=== PATIENT | female | born 1940 | race Caucasian/White ===

== ENCOUNTER 2024-07-22 22:50 | Emergency (ER) | payer OTHER, SELFPAY ==
[2024-07-22 22:55] VITALS: BP 173/102
[2024-07-22 22:57] VITALS: BMI 21.7
[2024-07-22 22:58] VITALS: BP 171/102
[2024-07-22 23:00] VITALS: BP 184/75
--- NOTE | 2024-07-22 23:23 | ED.GENMED ---
History of Present Illness
General
Chief Complaint: Fall
Source: patient
Exam Limitations: none
Time Seen by Provider: 07/22/24 23:02
History of Present Illness
History of Present Illness:
Patient reached for the wall lost her balance and fell. No syncope. No LOC. Hit her head. No loss of consciousness. Last tetanus is unknown. No other injury or complaint. No thinners.
Past History
Past History
ED Past Medical History: HTN, Hypercholesterolemia and NIDDM
ED Past Surgical History: Gynecological (Hysterectomy, D&C) and Other (Parathyroid ectomy wisdom teeth extraction)
Social History
Tobacco: Non-smoker
Alcohol: Occasional
Personal:
Living: with family
Employment: Retired
Family History
Family History: Negative Diabetes, Hypertension or CAD
Review of Systems
Review of Systems
All Other Systems: Not applicable
Respiratory: Reports no symptoms
Cardiac: Reports no symptoms
ABD/GI: Reports no symptoms
Neurological: Denies dizzy, headache, weakness or numbness
Phy Exam
Physical Exam
Physical Exam:
TRAUMA EXAM:
VITAL SIGNS: Vital signs reviewed, cooperative. Elderly and frail
DISTRESS: No active disease
EYES: Pupils reactive, no orbital trauma
NOSE: No deformity or epistaxis
FACE AND SCALP: 3 cm right posterior scalp laceration/hematoma.
NECK: Supple nontender
BACK: Back nontender, pelvis stable to compression
RESPIRATORY: No distress, breath sounds normal, no tender chest wall
CARDIAC: No murmur, pulses equal and strong
ABDOMEN: Soft nontender bowel sounds normal
SKIN: Skin intact no bleeding, color normal
EXTREMITIES: Nontender
NEUROLOGICAL: Alert, oriented, no motor deficits
PSYCH: Mood affect normal
Course
Orders/Labs/Results
Orders:
Orders
07/22/24 23:12
Cardiac Monitoring- Treatment ONCE
Tetanus/Diphth/Acelpertussis [Adacel] 0.5 ml IM .ONCE ONE
07/23/24 00:01
CT Cervical Spine W/o Iv Contr Urgent
Reason For Exam: trauma
CT Head W/o Iv Contrast Urgent
Reason For Exam: trauma
Vital Signs
Initial and Last Documented VS:
Initial Vital Signs
Pulse Resp BP Pulse Ox
71 21 173/102 97
07/22/24 22:55 07/22/24 22:55 07/22/24 22:55 07/22/24 22:55
Last Documented Vital Signs
Temp Pulse Resp BP Pulse Ox
97.1 F 73 19 184/75 97
07/22/24 22:58 07/22/24 23:00 07/22/24 23:00 07/22/24 23:00 07/22/24 23:00
Procedures
Laceration Closure
Right Posterior Head:
Status of Wound: clean
Size of Wound in cm: 3
Description of Wound Edges: ragged
Preparation: cleaned with saline and cleaned with Betadine
Anesthesia: 1% Lidocaine with epi
Revision/Debridement: routine- no revision
Wound exploration: explored to base- no FB
Type of Closure: single layer closure
Skin Closure Material: 4-0 nylon
Number of sutures: 4
MDM/Problems Addressed
Differential Diagnosis Includes:
Posterior scalp hematoma secondary to fall. No syncope. No indications to support medical cause of this. Appears to have just lost her balance. As far as head injury she is awake alert and oriented. Based on mechanism and age she will have a CT
done of the head and cervical spine. Laceration was sterilely repaired. She has no other injury or complaint.
*Radiology
Radiology exam reviewed: radiology read reviewed (Negative CTs)
*Pulse Oximetry
Patient hypoxic: no
*Computational Geneticist Interpretation
Rate: normal
Interpretation: normal
Heart Rate: 82
Rhythm: sinus
Data Reviewed
Review of Other/Old Records Reveals: Labs and Testing
Update Note
Update Note:
Medically stable. Discharged to follow-up
ED Attending Note
-
Portions of this chart may have been created with voice recognition software.� Occasional wrong word or��sound alike� substitutions may have occurred due to the inherent limitations of voice recognition software.
Discharge Plan
Departure
Discharge Problem:
Fall/head injury, Scalp laceration/hematoma
Instructions: BLOOD PRESSURE, Head Injury in Adults (DC), Laceration Repair With Stitches (DC)
Prescriptions:
No Action
multivitamin [Daily Multiple] 1 EACH tablet
1 ea PO DAILY
Cinnamon
1 PO DAILY
Fish Oil
1 PO DAILY
Garlic
1 PO DAILY
Losartan
1 tab PO DAILY
Red Yeast Rice
1 PO DAILY
Vitamin C:
1 tab PO DAILY
Zoloft:
1 tab PO DAILY
gentamicin [Garamycin] 0.3 % drops
1 drp BOTH EYES Q3 Qty: 1 1RF
amoxicillin-pot clavulanate 1 TABLET tablet
1 tab PO Q12 Qty: 14 0RF
hydrocodone-acetaminophen 1 TABLET tablet
1 tab PO HSPRN PRN (Reason: pain) Qty: 8 0RF
prednisone 20 MG tablet
40 mg PO DAILY Qty: 10 0RF
Referrals:
UNKNOWN - PT NOT,INTERVIEWE [Family Provider] -
Activity Restrictions/Additional Instructions:
Wound check in 2 to 3 days. Suture removal in 7 days
Interventions
Interventions:
*Risk Screen - Suicide Last Done: 07/22/24 22:59
*General Assessment Last Done: 07/22/24 22:59
*Neglect/Abuse Screening Last Done: 07/22/24 22:59
*ED COVID-19 Vaccine History Last Done: 07/22/24 22:59
ED-Musculoskeletal Assessment Last Done: 07/22/24 23:00
ED- Neurological Assessment Last Done: 07/22/24 23:00
ED-Skin Assessment Last Done: 07/22/24 23:01
Discharge Date and Time
Print Language: SYRIAN
[2024-07-23 01:30] VITALS: BP 165/88
== END 2024-07-23 03:40 | disposition home or self-care (01) ==
LOC: EMR 22:50
PROVIDERS: EMERGENCY PHYSICIAN Emergency Medicine
DX: S01.01XA Laceration without foreign body of scalp, initial encounter (principal); W19.XXXA Unspecified fall, initial encounter; I10 Essential (primary) hypertension
CPT/HCPCS: 99284; 12002; 70450; 72125

== ENCOUNTER 2025-03-19 09:30 | Emergency (ER) | payer OTHER, SELFPAY ==
[2025-03-19 09:36] VITALS: BMI 23.1
[2025-03-19 09:39] VITALS: BP 172/87
[2025-03-19 10:00] VITALS: BP 184/94
--- NOTE | 2025-03-19 10:07 | ED.GENMED ---
History of Present Illness
General
Chief Complaint: Fall
Time Seen by Provider: 03/19/25 09:38
History of Present Illness
History of Present Illness:
85-year-old female presenting from home after a fall. Per EMS, history of frequent falls, presents from home where she resides with her daughters. No family at bedside for additional information. Patient is not sure what happened regarding the
events of the fall. Patient arrives after she struck the back of her head, denies loss of consciousness. Denies extremity pain. Denies chest pain or difficulty breathing. Denies any fever. No report of any blood thinners. No lightheadedness or
dizziness. Denies additional acute medical complaints
Past History
Past History
ED Past Medical History: HTN, Hypercholesterolemia and NIDDM
ED Past Surgical History: Gynecological (Hysterectomy, D&C) and Other (Parathyroid ectomy wisdom teeth extraction)
Social History
Tobacco: Non-smoker
Alcohol: Occasional
Personal:
Living: with family
Employment: Retired
Family History
Family History: Negative Diabetes, Hypertension or CAD
Phy Exam
Physical Exam
Physical Exam:
General: Well-appearing, no clinical signs of dehydration, nontoxic and in no acute distress
HEENT: protecting airway
Neck: appears supple, no midline tenderness
Head: Moderate-sized hematoma to the right posterior parietal scalp. Skin avulsion without deep laceration
CV: Normal heart rate, regular rhythm
Resp: No accessory muscle use, no increased work of breathing, lungs clear to auscultation bilaterally
Abd: Soft and non-distended, no tenderness to palpation
Extremities: No deformities, no swelling, no erythema, pulses and sensation intact
Neuro: alert, no focal neurologic deficit
: deferred
Rectal: deferred
Psych: Normal affect
Skin: Intact
Course
Orders/Labs/Results
Orders:
Orders
03/19/25 09:56
CT Cervical Spine W/o Iv Contr Urgent
Comment:
Reason For Exam: fall
EKG- Treatment ONCE
03/19/25 09:57
Electrocardiogram (*1) Urgent
Reason for Study: Vertigo / Dizzy
CT Head W/o Iv Contrast Urgent
Comment:
Reason For Exam: fall, posterior hematoma
03/19/25 10:02
Complete Blood Count/With Diff Urgent
Comprehensive Metabolic Panel Urgent
Abnormal Lab Results
03/19/25
10:02
MCHC 32.1 L g/dL
(33.0-37.0)
Chloride 108 H mmol/L
(98-107)
BUN 25 H mg/dl
(7-17)
Glucose 119 H mg/dl
(70-99)
03/19/25 10:02
03/19/25 10:02
Vital Signs
Initial and Last Documented VS:
Initial Vital Signs
Temp Pulse Resp BP Pulse Ox
97.6 F 67 16 172/87 99
03/19/25 09:39 03/19/25 09:39 03/19/25 09:39 03/19/25 09:39 03/19/25 09:39
Last Documented Vital Signs
Temp Pulse Resp BP Pulse Ox
97.6 F 71 16 171/61 98
03/19/25 09:39 03/19/25 11:15 03/19/25 09:39 03/19/25 11:12 03/19/25 11:15
MDM/Problems Addressed
MDM/Problems Addressed:
85-year-old female presenting after a fall at home. Vital signs on arrival are significant for hypertension.
On exam, patient is resting comfortably, no acute distress or discomfort. Obvious signs of head trauma. Wound was irrigated and cleaned with no deep laceration, skin avulsion. Compressive bandage placed. Patient is alert and oriented. She is
unsure why she fell. For this reason we will obtain laboratory analysis and EKG. No additional signs of trauma on examination. Attempted call contact number listed in chart, no answer. Will continue to try to contact family.
11:40 - Patient's labs are unremarkable. EKG without arrhythmia or ischemia. Feel stable for discharge. Patient is requesting to go home. Did try to call patient's , however patient notes that he is in the hospital. She reports she has 3
daughters that will be at home with her. Will provide transportation home. Return precautions discussed
*Pulse Oximetry
SaO2: 98
Oxygen Mode of Delivery: Room air
Patient hypoxic: no
*EKG
Interpreted by ED Provider?: Yes
EKG Intrepretation Date: 03/19/25
EKG Intrepretation Time: 11:43
Interpretation: normal
Heart Rate: 61
Rate: normal
Rhythm: sinus and PVC's
Arco: normal axis
Interval: normal interval
QRS Pattern: normal QRS
*Critical Care Note
Total Time (30-74mins, 75-104mins- exclusive of procedures): Not Applicable
ED Attending Note
-
Portions of this chart may have been created with voice recognition software.� Occasional wrong word or��sound alike� substitutions may have occurred due to the inherent limitations of voice recognition software.
Discharge Plan
Departure
Prescriptions:
No Action
multivitamin [Daily Multiple] 1 EACH tablet
1 ea PO DAILY
Cinnamon
1 PO DAILY
Fish Oil
1 PO DAILY
Garlic
1 PO DAILY
Losartan
1 tab PO DAILY
Red Yeast Rice
1 PO DAILY
Vitamin C:
1 tab PO DAILY
Zoloft:
1 tab PO DAILY
gentamicin [Garamycin] 0.3 % drops
1 drp BOTH EYES Q3 Qty: 1 1RF
amoxicillin-pot clavulanate 1 TABLET tablet
1 tab PO Q12 Qty: 14 0RF
hydrocodone-acetaminophen 1 TABLET tablet
1 tab PO HSPRN PRN (Reason: pain) Qty: 8 0RF
prednisone 20 MG tablet
40 mg PO DAILY Qty: 10 0RF
Referrals:
UNKNOWN - PT NOT,INTERVIEWE [Family Provider]
Interventions
Interventions:
*Risk Screen - Suicide Last Done: 03/19/25 09:36
*General Assessment Last Done: 03/19/25 09:36
*Neglect/Abuse Screening Last Done: 03/19/25 09:36
*ED- Fall Risk Assessment Last Done: 03/19/25 09:36
*ED COVID-19 Vaccine History Last Done: 03/19/25 09:36
ED-Musculoskeletal Assessment Last Done: 03/19/25 09:49
ED- Neurological Assessment Last Done: 03/19/25 09:49
ED-Skin Assessment Last Done: 03/19/25 09:49
Discharge Date and Time
Print Language: [place]ET[place]
[2025-03-19 10:24] LABS: Hematocrit 39.2 % (37.0-47.0); Hemoglobin 12.6 g/dL (12.0-16.0); Mean Corp Hgb Conc. 32.1 g/dL (33.0-37.0); Mean Corpuscular Volume 89.5 fL (81.0-99.0); Nucleated Red Blood Cells % 0 %; Platelet Count 310 10^3/uL (130-400); Red Cell Dist. Width 13.9 % (11.5-14.5)
[2025-03-19 10:33] LABS: ALT (SGPT) 15 U/L (0-35); AST (SGOT) 25 U/L (14-36); Albumin 4.2 g/dl (3.5-5.0); Alkaline Phosphatase 63 U/L (38-126); Blood Urea Nitrogen 25 mg/dl (7-17); Calcium 8.9 mg/dl (8.4-10.2); Carbon Dioxide 26 mmol/L (22-30); Chloride 108 mmol/L (98-107); Estimated Creatinine Clearance 57 ml/min; Glucose 119 mg/dl (70-99); Potassium 4.2 mmol/L (3.5-5.1); Sodium 140 mmol/L (135-145); Total Protein 7.0 g/dl (6.3-8.2); eGFR > 60.00
[2025-03-19 11:00] VITALS: BP 176/91
[2025-03-19 11:12] VITALS: BP 171/61
== END 2025-03-19 12:08 | disposition home or self-care (01) ==
LOC: EMR 09:30
PROVIDERS: EMERGENCY PHYSICIAN Student in an Organized Health Care Education/Training Program
DX: S09.90XA Unspecified injury of head, initial encounter (principal); W19.XXXA Unspecified fall, initial encounter; Z91.81 History of falling; R42 Dizziness and giddiness; I10 Essential (primary) hypertension; E78.00 Pure hypercholesterolemia, unspecified; E11.9 Type 2 diabetes mellitus without complications
CPT/HCPCS: 99284; 70450; 72125; 80053; 85025; 93005